=== PATIENT | male | born 1995 | race Caucasian/White ===

== ENCOUNTER 2021-05-10 16:20 | Emergency (ER) | payer OTHER ==
[~2021-05-10 16:20] MED LIST: NORCO 5-325 TA1 EACH PO; PANTOPRAZOLE SO20 MG PO; PERCOCET 7.5/321 TAB PO
[2021-05-10 18:12] LABS: BASOPHIL 0.2 % (0-2); EOSINOPHIL 0.4 % (0-5); HCT 44.8 % (42.0-52.0); HGB 14.8 g/dl (13.2-18.0); LYMPHOCYTE 19.6 % (15-48); MCH 29.1 pg (25.0-31.0); MCV 88.2 fL (78.0-100.0); MONOCYTE 8.5 % (0-12); MPV 10.9 fL (6.0-9.5); NRBC 0; PLT 241 K/uL (150-400); RBC 5.08 M/uL (4.70-6.00); RDW 12.9 % (11.5-14.0); WBC 12.2 K/uL (4.0-10.5)
[2021-05-10 18:23] LABS: BUN/CREAT RATIO (CALC) 21.1 RATIO; CREATININE 0.95 mg/dL (0.67-1.17); POTASSIUM 4.5 mmol/L (3.5-5.1); URIC ACID 7.7 mg/dL (3.5-7.2)
[2021-05-10] MEDS ORDERED: INDOCIN25 MG PO (19:09)
== END 2021-05-10 19:19 | disposition home or self-care (01) ==
LOC: FER 16:20
PROVIDERS: Nurse Practitioner Family
DX: M10.9 Gout, unspecified (principal); F17.290 Nicotine dependence, other tobacco product, uncomplicated
CPT/HCPCS: 36415; 73620; 80048; 84550; 85025

== ENCOUNTER 2021-11-02 16:56 | Emergency (ER) | payer SELFPAY ==
[~2021-11-02 16:56] MED LIST changes: +INDOCIN25 MG PO
[2021-11-02] MEDS ORDERED: CLEOCIN300 MG PO (17:23)
== END 2021-11-02 17:51 | disposition home or self-care (01) ==
LOC: FER 16:56
DX: K08.89 Other specified disorders of teeth and supporting structures (principal)
CPT/HCPCS: 99282; Q0163